=== PATIENT | male | born 1980 | race African-American/Black ===

== ENCOUNTER 2017-03-21 20:26 | Emergency (ER) | payer MEDICARE, MEDICAID ==
[~2017-03-21] VITALS: Ht 167.6 cm; Wt 9.0 kg
[~2017-03-21 20:26] MED LIST: CALC600T12; CEPH-569 PO; SULF-165 PO
[2017-03-22] MEDS ORDERED: IBUPROFEN 600MG TABLET PO ONE (03:00)
[2017-03-22 03:15] VITALS: BP 113/78
== END 2017-03-22 03:52 | disposition home or self-care (01) ==
LOC: ER 20:26
DX: H61.23 Impacted cerumen, bilateral (principal); M79.89 Other specified soft tissue disorders; M79.642 Pain in left hand; M79.641 Pain in right hand; R73.03 Prediabetes; R03.0 Elevated blood-pressure reading, without diagnosis of hypertension; F84.0 Autistic disorder
CPT/HCPCS: 69209; 99283